=== PATIENT | female | born 1950 | race Caucasian/White ===

== ENCOUNTER 2024-10-09 14:10 | Inpatient (IN) | payer MEDICARE, BC, SELFPAY ==
[2024-10-09 06:40] VITALS: BP 122/76
--- NOTE | 2024-10-09 07:59 | ED.GENMED ---
History of Present Illness
General
Chief Complaint: Bowel Problem
Source: patient and spouse
Exam Limitations: none
Time Seen by Provider: 10/09/24 07:33
History of Present Illness
History of Present Illness:
74yoF with a history of hypertension, hyperlipidemia, and hypothyroidism presenting with her for evaluation of constipation. Patient underwent right knee replacement 4 days ago. She has been unable to have a bowel movement since the
surgery. She was prescribed tramadol for postoperative pain which is she is taking about 4 times a day. Her last bowel movement was 6 days ago. She is passing flatus. She has been experiencing dry heaves and vomited several times this morning.
She reports feeling dehydrated and has some lower abdominal cramping. She has tried Colace, Dulcolax, and a fleets enema this morning without any relief. No difficulty urinating. Previous abdominal surgeries include a cholecystectomy and a
hysterectomy.
Past History
Past History
ED Past Medical History: HTN, Hypothyroidism and Psychiatric (Anxiety)
ED Past Surgical History: Gynecological (Hysterectomy), Orthopedic (Bilateral hip replacement) and Other ([place] teeth, cataract surgery)
Social History
Tobacco: Non-smoker
Alcohol: None
Drug: None
Personal:
Living: with family
Employment: Retired
Phy Exam
General Physical Exam
General Presentation: well appearing
General age: appears stated age
General Skin: warm and dry
General Habitus: normal
General Mental: alert
ENT Exam
ENT Exam: normocephalic
Pulmonary Exam
Pulmonary Exam: no respiratory distress
Gastrointestinal Exam
Gastrointestinal Exam: soft, non distended and other (+Tenderness in LLQ. Abdomen soft, non-distended. No rebound or guarding.)
Neurological Exam
Neurological Exam: alert
[place] Coma Scale
Eye Opening: Spontaneous
Verbal Response: Oriented
Motor Response: Obeys Commands
GCS Total Score: 15
Skin Exam
Skin Exam: normal color and warm/dry
Psychiatric Exam
Psychiatric Exam: normal mood/affect
Course
Orders/Labs/Results
Orders:
Orders
10/09/24 07:56
CT Abd/pelvis W Iv Cont Urgent
Comment:
Reason For Exam: LLQ pain, constipation
0.9% Sodium Chloride 500 ml [Nss] 500 ml IV BOLUS
10/09/24 08:25
Complete Blood Count/With Diff Urgent
Comprehensive Metabolic Panel Urgent
10/09/24 10:12
Enema- Treatment ONCE
Type: Milk of Molasses
10/09/24 10:41
Ondansetron Injectable [Zofran] 4 mg IV NOW STA
10/09/24 14:01
Admit/Transfer Patient As Directed
Co-Sign Provider:
Level of Care: Inpatient admission
Assign to:: Medical/Surgical
Physician / Group: gonzález
Diagnosis: constipation
Reason for Hospitalization: constipation
Expected length of stay greater than two midnights?: Yes
ELOS- Estimated Length of Stay in days: 2
I certify the patient meets the requirements for IP care: Yes
Code Status As Directed
Resuscitation Status: Full Code
PRN Pain Medication Management As Directed
May give lesser potent ordered pain med per pt: Yes
preference::
Protocol:: Medication orders for pain may be administered in a
manner that supports deferring to patient preference
when the pt is:
- Requesting an ordered lesser potent pain medication.
Least to most potent pain medications are defined
as: acetaminophen < NSAID < tramadol < opioids
(morphine, oxycodone, hydromorphone).
- Requesting a lesser dose of the same medication IF
ORDERED.
- Requesting a less intrusive route of administration
if both routes are prescribed by the provider (PO <
IV).
Abnormal Lab Results
10/09/24
08:25
WBC 10.9 H 10^3/uL
(4.8-10.8)
RBC 3.77 L 10^6/uL
(4.20-5.40)
Hgb 11.7 L g/dL
(12.0-16.0)
Hct 34.8 L %
(37.0-47.0)
Abs Immat Gran (auto) 0.1 H 10^3/uL
(0-0.05)
Absolute Neuts (auto) 7.3 H 10^3/uL
(1.4-6.5)
Absolute Monos (auto) 0.8 H 10^3/uL
(0.1-0.6)
Immature Gran % 0.6 H %
(0-0.5)
BUN 27 H mg/dl
(7-17)
Total Protein 5.6 L g/dl
(6.3-8.2)
10/09/24 08:25
10/09/24 08:25
Vital Signs
Initial and Last Documented VS:
Initial Vital Signs
Temp Pulse Resp BP Pulse Ox
98.2 F 64 20 122/76 97
10/09/24 06:40 10/09/24 06:40 10/09/24 06:40 10/09/24 06:40 10/09/24 06:40
Last Documented Vital Signs
Temp Pulse Resp BP Pulse Ox
98.2 F 71 20 150/62 96
10/09/24 06:40 10/09/24 13:15 10/09/24 06:40 10/09/24 13:15 10/09/24 13:15
MDM/Problems Addressed
Differential Diagnosis Includes:
74yoF here with constipation. Has not had a BM in 6 days. Recent knee replacement and patient currently taking Tramadol. VSS. She is nontoxic-appearing. No signs of peritonitis on abdominal exam. Differential diagnosis includes but is not limited
to: Postoperative constipation, opioid-induced constipation, diverticulitis, less likely bowel obstruction
Initial ED plan: Check CBC, CMP, and CT abdomen with IV contrast. IV fluid bolus.
*Critical Care Note
Total Time (30-74mins, 75-104mins- exclusive of procedures): Not Applicable
Update Note
Update Note:
CT shows large volume stool suggesting constipation. There is also wall thickening of the gastric antrum and duodenum suspicious for gastritis/duodenitis raising the possibility for underlying peptic ulcer disease. She denies any heartburn or
postprandial pain. Patient given milk of molasses enema. She was able to have a small bowel movement after this but subsequently had several episodes of vomiting. On reassessment, patient appears clammy and continues to be nauseous. She states
she feels no better after the enema. Will admit for further management.
ED Attending Note
-
Portions of this chart may have been created with voice recognition software.� Occasional wrong word or��sound alike� substitutions may have occurred due to the inherent limitations of voice recognition software.
Discharge Plan
Departure
Patient Disposition: Admit
Date of Disposition: 10/09/24
Time of Disposition: 13:14
Presentation/result/management discussed w/ accepting MD/DO: Hospitalist
Discharge Problem:
Constipation, Nausea and vomiting
Interventions
Interventions:
*Risk Screen - Suicide Last Done: 10/09/24 06:40
*General Assessment Last Done: 10/09/24 06:40
*Neglect/Abuse Screening Last Done: 10/09/24 06:40
*ED- Fall Risk Assessment Last Done: 10/09/24 08:00
ZI-Mqkrqi-Fzzxwfoeiq Assessment Last Done: 10/09/24 12:05
[2024-10-09] MEDS: NSS 500 IV (08:36)
[2024-10-09 08:48] LABS: % Basophils 0.2 % (0-2); % Eosinophils 0.8 % (0-6); % Immature Granulocytes 0.6 % (0-0.5); % Lymphocytes 24.2 % (20.5-51.1); % Monocytes 7.4 % (1.7-9.3); % Neutrophils 66.8 % (42.2-75.2); Absolute Eosinophils 0.1 10^3/uL (0-0.7); Absolute Immature Granulocytes 0.1 10^3/uL (0-0.05); Absolute Lymphocytes 2.6 10^3/uL (1.2-3.4); Absolute Monocytes 0.8 10^3/uL (0.1-0.6); Absolute Neutrophils 7.3 10^3/uL (1.4-6.5); Hematocrit 34.8 % (37.0-47.0); Hemoglobin 11.7 g/dL (12.0-16.0); Mean Corp Hgb Conc. 33.6 g/dL (33.0-37.0); Mean Corpuscular Volume 92.3 fL (81.0-99.0); Mean Platelet Volume 9.7 fL (7.4-10.4); Nucleated Red Blood Cells % 0 %; Platelet Count 211 10^3/uL (130-400); Red Blood Cell Count 3.77 10^6/uL (4.20-5.40); Red Cell Dist. Width 12.3 % (11.5-14.5); White Blood Cell Count 10.9 10^3/uL (4.8-10.8)
[2024-10-09 08:57] LABS: ALT (SGPT) 32 U/L (0-35); AST (SGOT) 27 U/L (14-36); Albumin 3.6 g/dl (3.5-5.0); Alkaline Phosphatase 60 U/L (38-126); Blood Urea Nitrogen 27 mg/dl (7-17); Carbon Dioxide 28 mmol/L (22-30); Chloride 103 mmol/L (98-107); Glucose 87 mg/dl (70-99); Potassium 3.8 mmol/L (3.5-5.1); Sodium 139 mmol/L (135-145); Total Bilirubin 0.8 mg/dl (0.2-1.3); Total Protein 5.6 g/dl (6.3-8.2); eGFR > 60.00
[2024-10-09 10:05] VITALS: BP 164/80
[2024-10-09] MEDS: ZOFRAN 4 MG IV ×2 (11:01→17:04)
[2024-10-09 13:15] VITALS: BP 150/62
--- NOTE | 2024-10-09 14:05 | HPS.HSE ---
Family Physician
-
Family Physician: Mark Chong
Chief Complaint
-
abdominal pain, vomiting
History of Present Illness
74-year-old female past medical history of osteoarthritis, hypertension, hyperlipidemia, hypothyroidism, depression, retinal detachment, cataract, prior alcohol use, impaired fasting glucose, anxiety, presenting for constipation. Patient underwent
right knee replacement 4 days ago and has been unable to have a bowel movement since the surgery. She is prescribed tramadol for postoperative pain which she is taking 3 times a day. Her last bowel movement 6 days ago. She is passing gas. She is
experiencing dry heaves and vomited several times this morning. She has some lower abdominal cramping. She tried Colace, Dulcolax and fleet enema without any relief. No difficulty urinating.
She does not smoke or drink alcohol.
Medical History
Past Medical History
Past Medical History: Reports Other (osteoarthritis, hypertension, hyperlipidemia, hypothyroidism, depression, retinal detachment, cataract, prior alcohol use, impaired fasting glucose, anxiety)
Past Surgical History: Reports Tonsilectomy (Cholecystectomy, hysterectomy,)
Social History
Tobacco: Non-smoker
Alcohol: None
Drug: None
Family History
Family History: Not pertinent
Allergies / Home Medications
Allergies reflects when Allergies were last updated in [facility].
Home Medications with original date entered in [facility]
Allergy/Medication List:
Allergies
Allergy/AdvReac Type Severity Reaction Status Date / Time
promethazine [From Phenergan] Allergy dyskinesia Verified 06/30/19 06:59
Myhiedk-DVY-GkM Reductase Allergy muscle Verified 06/30/19 06:59
Inhibitor soreness
[Wqwrtrj-Nla-Vmz Reductase
Inhibitor]
Home Medications
escitalopram oxalate 10 mg tablet 10 mg PO NOON 03/18/18
rosuvastatin 5 mg tablet 5 mg PO QPM 03/18/18
diphenhydramine HCl 25 mg capsule (Banophen) 25 mg PO HS 04/21/18
multivitamin (Daily Multiple tablet) 1 ea PO QPM 04/21/18
Calcium + D 2 tab PO NOON 05/31/19
levothyroxine 75 mcg tablet 75 mcg PO DAILY AT 0700 05/31/19
mupirocin 2 % topical ointment 1 applic intranasal BID #1 tube 06/22/19
acetaminophen 500 mg tablet (Tylenol Extra Strength) 1,000 mg (2 x 500 mg) PO QID 07/01/19
aspirin 325 mg tablet 325 mg PO DAILY 07/01/19
cyclobenzaprine 10 mg tablet 10 mg PO TID #30 tabs 07/01/19
magnesium hydroxide 400 mg/5 mL oral suspension 30 ml PO DAILYPRN PRN constipation 07/01/19
meloxicam 15 mg tablet 15 mg PO DAILY #45 tabs 07/01/19
metoprolol tartrate 100 mg tablet (Lopressor) 100 mg PO 1800 ##0 07/01/19
polyethylene glycol 3350 17 gram oral powder packet 17 grams PO DAILY #1 packet 07/01/19
sennosides 8.6 mg tablet (senna) 2 tab PO HS 07/01/19
tramadol 50 mg tablet 50 mg PO Q6HPRN PRN moderate-severe pain #35 tabs 07/01/19
Review of Systems
-
History Source: Patient
A 12 point ROS was completed and negative except as noted: Yes
Constitutional: Reports No Symptoms
EENT: Reports No Symptoms
Respiratory: Reports No Symptoms
Cardiac: Reports No Symptoms
Abdomen/GI: Reports See HPI
: Reports No Symptoms
Musculoskeletal: Reports No Symptoms
Skin: Reports No Symptoms
Neurological: Reports No Symptoms
Endocrine: Reports No Symptoms
Hematologic/Lymphatic: Reports No Symptoms
Psych: Reports No Symptoms
Physical Exam
Vital Signs
Vital Signs
Temp Pulse Resp BP Pulse Ox
98.2 F 71 20 150/62 96
10/09/24 06:40 04/19/25 13:15 10/09/24 06:40 10/09/24 13:15 10/09/24 13:15
Physical Exam
General: Well Developed, Well Nourished and No Apparent Distress
HEENT: NormoCephalic, Moist mucous membranes and Atraumatic
Respiratory: Clear
Cardiac: S1/S2 and Regular Rhythm; No Murmur or Rub
GI: Soft, Non Distended, Normal Bowel Sounds and Tender (lower quadrants ); No Organomegaly
Rectal: Deferred by Provider
Musculoskeletal: No Clubbing, No Cyanosis and No Edema
Skin: No Rash
Neuro: Nonfocal/grossly intact
Laboratory Results
-
10/09/24 08:25
10/09/24 08:25
Laboratory Results
Total Bilirubin 0.8 mg/dl (0.2-1.3) 10/09/24 08:25
AST 27 U/L (14-36) 10/09/24 08:25
ALT 32 U/L (0-35) 10/09/24 08:25
Alkaline Phosphatase 60 U/L (38-126) 10/09/24 08:25
Data Reviewed
-
Lab Data: Labs Reviewed by me
Old Records: Reviewed
Impression/Plan
-
IMPRESSION:
PLAN:
# Opioid-induced constipation
- CT abdomen pelvis shows large volume colonic stool suggesting constipation, wall thickening of the gastric antrum and duodenum suspicious for gastritis/duodenitis and possible underlying peptic ulcer disease
-Start MiraLAX twice daily, continue as needed Dulcolax
-Enema given with some evacuation of stool
- Attempt mag citrate versus enema tomorrow if no bowel movements in the meantime
- Clear liquid diet
# Gastritis/duodenitis/possible peptic ulcer disease
- Start Protonix 40 daily while on Celebrex
Recent right hip replacement
-Completed postoperative prednisone
- Continue tramadol
- Continue Celebrex
Osteoarthritis
Essential hypertension
- Continue metoprolol
Hyperlipidemia
- Continue statin
Hypothyroidism
- Continue levothyroxine
Depression
- Continue Lexapro
Retinal detachment
Cataracts
Prior alcohol use
Impaired fasting glucose
Anxiety
Full code
DVT prophylaxis�heparin
Clear liquid diet
[2024-10-09 16:35] VITALS: BP 124/75
--- NOTE | 2024-10-09 17:00 | PTCARENOTE ---
Received patient from ED via stretcher. AAOx3, ambulated to bed with minimal assistance. Assessed and oriented to room. Patient complaining of nausea, zofran given as ordered. Call uribe in close reach.
[2024-10-09] MEDS: ASPIRIN 325 MG PO (17:30)
[2024-10-09] MEDS: LOPRESSOR 100 MG PO (17:30)
[2024-10-09] MEDS: CRESTOR 5 MG PO (17:30)
[2024-10-09] MEDS: HEPARIN 5000 UNITS SC (19:30)
[2024-10-09] MEDS: TYLENOL 1000 MG PO (19:30)
[2024-10-09] MEDS: COLACE 100 MG PO (20:27)
[2024-10-09] MEDS: CELEBREX 100 MG PO (20:27)
[2024-10-09] MEDS: MIRALAX 17 GRAMS PO (20:28)
[2024-10-09] MEDS: BENADRYL 25 MG PO (22:21)
[2024-10-09 23:21] VITALS: BP 122/60
[2024-10-10] MEDS: TYLENOL 1000 MG PO (01:46)
[2024-10-10 05:50] LABS: % Basophils 0.1 % (0-2); % Eosinophils 1.3 % (0-6); % Immature Granulocytes 0.7 % (0-0.5); % Lymphocytes 28.9 % (20.5-51.1); % Monocytes 6.8 % (1.7-9.3); % Neutrophils 62.2 % (42.2-75.2); Absolute Eosinophils 0.1 10^3/uL (0-0.7); Absolute Immature Granulocytes 0.1 10^3/uL (0-0.05); Absolute Lymphocytes 2.8 10^3/uL (1.2-3.4); Absolute Monocytes 0.7 10^3/uL (0.1-0.6); Hematocrit 30.6 % (37.0-47.0); Hemoglobin 10.4 g/dL (12.0-16.0); Mean Corpuscular Hgb 31.5 pg (27.0-31.0); Mean Corpuscular Volume 92.7 fL (81.0-99.0); Nucleated Red Blood Cells % 0 %; Platelet Count 193 10^3/uL (130-400); Red Cell Dist. Width 12.3 % (11.5-14.5); White Blood Cell Count 9.6 10^3/uL (4.8-10.8)
[2024-10-10] MEDS: SYNTHROID 75 MCG PO (06:09)
[2024-10-10 06:13] LABS: ALT (SGPT) 25 U/L (0-35); AST (SGOT) 22 U/L (14-36); Alkaline Phosphatase 58 U/L (38-126); Blood Urea Nitrogen 26 mg/dl (7-17); Calcium 8.6 mg/dl (8.4-10.2); Carbon Dioxide 26 mmol/L (22-30); Chloride 105 mmol/L (98-107); Estimated Creatinine Clearance 44 ml/min; Glucose 77 mg/dl (70-99); Potassium 4.4 mmol/L (3.5-5.1); Sodium 136 mmol/L (135-145); Total Bilirubin 0.9 mg/dl (0.2-1.3); Total Protein 4.9 g/dl (6.3-8.2); eGFR > 60.00
[2024-10-10 07:25] VITALS: BP 133/80
[2024-10-10] MEDS: HEPARIN 5000 UNITS SC (08:11)
[2024-10-10] MEDS: PROTONIX 40 MG PO (08:12)
[2024-10-10] MEDS: THERAGRAN 1 TABLET PO (08:12)
[2024-10-10] MEDS: ASPIRIN 325 MG PO (08:12)
[2024-10-10] MEDS: FLUSH (NSS) 1 FLUSH IV (08:13)
[2024-10-10] MEDS: CELEBREX 100 MG PO (08:13)
[2024-10-10] MEDS: MIRALAX PO (09:18)
--- NOTE | 2024-10-10 09:20 | W.DS.TRANS ---
DC Summary - [employer]
-
Discharge Instructions:
Discharge Diagnosis/Procedures Constipation
Diet Regular
Activity As tolerated
Driving Restrictions As prior to admission
Bathing Restrictions None
Instructions:
Stand-Alone Forms:
Changes to Home Medications: No
Discharge Medications:
DC Medications w/original date entered in [facility]
escitalopram oxalate 10 mg tablet 10 mg PO NOON Mental Health/Anxiety 03/18/18
rosuvastatin 5 mg tablet 5 mg PO QPM High Cholesterol 03/18/18
diphenhydramine HCl 25 mg capsule (Banophen) 25 mg PO HS ANTIHISTAMINE 04/21/18
levothyroxine 75 mcg tablet 75 mcg PO DAILY AT 0700 Thyroid 05/31/19
aspirin 325 mg tablet 325 mg PO DAILY 07/01/19
metoprolol tartrate 100 mg tablet (Lopressor) 100 mg PO 1800 ##0 07/01/19
acetaminophen 500 mg tablet (Tylenol Extra Strength) 1,000 mg PO QIDPRN PRN mild pain 10/09/24
calcium 600 mg (as carbonate)-vitamin D3 10 mcg (400 unit) tablet (Calcium 600 + D(3)) 1 tab PO BID Supplement 10/09/24
celecoxib 100 mg capsule 100 mg PO BID INFLAMMATORY PAIN 10/09/24
docusate sodium 100 mg capsule (Colace) 100 mg PO TIDPRN PRN constipation 10/09/24
ondansetron HCl 4 mg tablet 4 mg PO Q6HPRN PRN nausea 10/09/24
therapeutic multivitamin 1 tab PO DAILY Supplement 10/09/24
polyethylene glycol 3350 17 gram oral powder packet 17 g PO DAILY #0 ea 10/10/24
sennosides 8.6 mg tablet (Laxative (sennosides)) 8.6 mg PO BID PRN Constipation #20 tabs 10/10/24
Home Medication Changes
Pending Results: No
--- NOTE | 2024-10-10 09:21 | W.PN.HOSP.TC ---
Today's Communication/Plan
-
Discharge
Assessment / Plan
Assessment / Plan
Gen-AAOx3, NAD
HEENT-NC, AT, anicteric, clear oral mm
Neck-supple
CV-reg, no M, +S1/S2
Lungs-clear B/L
Abd-soft, NT, ND
Ext-no edema
Musculoskeletal-no cyanosis, clubbing
Skin-warm and dry
Neuro-grossly non-focal
Psych-calm, cooperative
Opioid-induced constipation -due to tramadol. Nausea and vomiting and abdominal pain resolved. Symptoms improved with bowel movement. Recommend Colace, Senokot, MiraLAX at home. High-fiber diet. Discontinue further tramadol. Patient eager to
go home today. Advance diet.
Recent right total knee arthroplasty -continue Tylenol as needed.
Essential hypertension -stable.
Hypothyroidism -levothyroxine.
Hyperlipidemia -rosuvastatin.
Full code
Dispo - medically stable for discharge home today. Outpatient follow-up.
Anticipated Discharge: Today
Subjective/Interval History
-
Date of Service: October 10, 2024
Patient seen and examined. Feels better. Had 2 bowel movements this morning. No complaints.
Objective Data
-
Labs:
Laboratory Results
10/10/24
04:37
WBC 9.6
Hgb 10.4 L
Hct 30.6 L
Plt Count 193
Sodium 136
Potassium 4.4
Chloride 105
Carbon Dioxide 26
BUN 26 H
Creatinine 0.9
Glucose 77
Calcium 8.6
Total Bilirubin 0.9
AST 22
ALT 25
Alkaline Phosphatase 58
Vital Signs:
Vital Signs
Temp Pulse Resp BP Pulse Ox
98.6 F 66 16 133/80 96
10/10/24 07:25 10/10/24 07:25 10/10/24 07:25 10/10/24 07:25 10/10/24 08:08
Review of Systems
-
History Source: Patient
All other systems: Reviewed and negative
--- NOTE | 2024-10-10 10:24 | CM ---
CM following re: discharge planning.
Reviewed pt's chart, met with pt and pt's at bedside.
Pt is a 74 year old female, admitted with primary dx of Constipation.
Pt reports she lives with 2SH, 1 step to enter, has supportive son. Pt reports she had total knee replacement on 10/04/24, has outpatient therapy at orthopedic office. Pt reports she ambulates with a cane and helps daily.
Discharge order noted. Both pt and her are aware and pt stated she does not need any after care VN services. stated he will transport pt home.
PCP: Mike Kumar
Pharmacy: [facility]
D/C plan: home no needs. to transport.
== END 2024-10-10 10:34 | disposition home or self-care (01) | DRG 392 ==
LOC: 4 EAST ACU 14:10
PROVIDERS: Physician Assistant; ADMITTING PHYSICIAN Hospitalist; ATTENDING PHYSICIAN Hospitalist; EMERGENCY PHYSICIAN Emergency Medicine; FAMILY PHYSICIAN Internal Medicine
DX: K59.03 Drug induced constipation (principal); E78.5 Hyperlipidemia, unspecified; I10 Essential (primary) hypertension; E03.9 Hypothyroidism, unspecified; T40.2X5A Adverse effect of other opioids, initial encounter; E86.0 Dehydration; Z96.651 Presence of right artificial knee joint
CPT/HCPCS: 74177; 80053; 85025; 96361; 96374; 96376; 99284; Q9967